=== PATIENT | male | born 1945 | race Caucasian/White ===

== ENCOUNTER 2019-06-03 12:42 | Observation (INO) | payer MEDICARE, BC ==
[~2019-06-03] VITALS: Ht 170.2 cm; Wt 81.0 kg
--- NOTE | 2019-06-03 12:42 | NUR ---
PT AMB TO ROOM IN NO DISTRESS DENIES ABD PAIN
--- NOTE | 2019-06-03 13:01 | NUR ---
PT STATES HAD A WATCHMEN PLACED AND 3 STENTS AT [facility] 2 WEEKS AGO FOR LOW HEART RATE. PT DENIES ANY CHEST PAIN OR SOB
[2019-06-03 13:20] LABS: IMMATURE GRANULOCYTES 0.4 % (0.0-5.0); MEAN CELL VOLUME 90.5 fL CALC (80.0-100.0); MEAN CORPUSCULAR HGB 30.9 pG CALC (26.0-32.0); MEAN CORPUSCULAR HGB CONC 34.1 g/dL CAL (32.0-36.0); NEUT# 7.12 thou/uL (1.82-7.42); RED BLOOD COUNT 4.53 mill/uL (4.70-6.10); RED CELL DISTRI WIDTH 13.1 % (11.5-15.5)
[2019-06-03 13:36] LABS: ALBUMIN 4.2 g/dL (3.2-5.0); BILIRUBIN, TOTAL 1.4 mg/dL (0.0-1.4); CREATININE 2.1 mg/dL (0.7-1.3); POTASSIUM 4.9 mmol/l (3.5-5.1); TOTAL PROTEIN 6.8 g/dL (6.3-8.2)
--- NOTE | 2019-06-03 13:45 | NUR ---
NO DIARRHEA SINCE ARRIVAL EXCEPT ABOUT A QUARTER SIZE THAT WAS SENT FOR LAB TESTING.
[2019-06-03] MEDS ORDERED: LIPITOR20 MG PO (14:20)
[2019-06-03] MEDS ORDERED: MAGNESIUM OXID400 M3 PO (14:21)
[2019-06-03] MEDS ORDERED: PLAVIX75 MG PO (14:21)
[2019-06-03] MEDS ORDERED: SOTALOL HCL80 MG PO (14:22)
[2019-06-03] MEDS ORDERED: ELIQUIS2.5 MG PO (14:23)
--- NOTE | 2019-06-03 14:29 | NUR ---
STOOL OBTAINED AND SENT,, PT RESTING QUIETLY ON STRETCHER, AT BEDSIDE. NO COMPLAINTS AT THIS TIME
[2019-06-03 15:00] LABS: URINE BILIRUBIN - DIPSTICK NEGATIVE (NEGATIVE); URINE BLOOD DIPSTICK TRACE-INTACT (NEGATIVE); URINE COLOR YELLOW; URINE GLUCOSE - DIPSTICK NEGATIVE (NEGATIVE); URINE KETONE NEGATIVE (NEGATIVE); URINE LEUK ESTERASE TRACE (NEGATIVE); URINE NITRITE - DIPSTICK NEGATIVE (Negative); URINE PROTEIN - DIPSTICK NEGATIVE (NEG-TRACE); URINE SPECIFIC GRAVITY 1.015; URINE UROBILINOGEN - DIPSTICK 0.2 E.U./dL (0.2)
--- NOTE | 2019-06-03 15:03 | NUR ---
PT RESTING QUIETLY ON STRETCHER, DENIES ANY PAIN AT THIS TIME, DENIES THE NEED TO HAVE BOWEL MOVEMNT
[2019-06-03] MEDS ORDERED: ALLOPURINOL300 MG PO (15:53)
[2019-06-03] MEDS ORDERED: CITALOPRAM10 MG PO ×2 (15:54→15:55)
[2019-06-03] MEDS ORDERED: TRAZODONE50 MG PO (15:56)
[2019-06-03] MEDS ORDERED: LISINOPRIL10 MG PO (15:56)
--- NOTE | 2019-06-03 16:39 | NUR ---
REPORT CALLED TO [facility], AND PT TAKEN TO FLOOR PER W/C WITH TELEMETRY
[2019-06-03 17:00] VITALS: BP 155/58
--- NOTE | 2019-06-03 17:15 | NUR ---
PATIENT ARRIVED ON FLOOR AT APPROXIMATELY 1645. PT IS ALERT AND ORIENTED X 4; ABLE TO MAKE NEEDS KNOWN. GAIT STEADY AND PT IS ABLE TO AMBULATE INDEPENDENTLY. PT HAD TWO EPISODE OF DIARRHEA WITHIN 30 MINUTES. STOOL IS LOOSE, MODERATE IN QUANTITY AND YELLOW IN COLOR. BOWEL SOUND ARE HYPERACTIVE, STOMACH IS ROUND, DISTENDED, AND SOFT TO PALPATION. PT C/O STOMACH TENDERNESS DURING GENTLE PALPATION. PT C/O REDUCED APPETITE AND URGENCY WHEN HE HAS TO HAVE A BOWEL MOVEMENT. BEDSIDE COMMODE AND TOILETRIES SET WITHIN EASY REACH. PT DENIES NAUSEA. PT DENIES VOMITING. PT ORIENTED TO CALL BUTTON, BED CONTROL, PHONE. CERTIFIED BENCH JEWELER TECHNICIAN WILL CONTIUE TO MONITOR
--- NOTE | 2019-06-03 19:00 | NUR ---
RECEIVED REPORT FROM NURSE WISDOM PATIENT RESTING IN BED, WATCHING TV, CALL LIGHT AT REACH.
[2019-06-03 20:20] VITALS: BP 139/62
--- NOTE | 2019-06-03 20:30 | NUR ---
PATIENT ALERT ORINETED, ABLE TO MAKE NEEDS KNOWN, WITH AN ONGOING IV OF LR @ 100CC/HR INFUSING WELL REMAINS ON TELE, STILL HAVING LOOSE WATERY STOOL BM X 2 THIS SHIFT, BEDSIDE COMMODE AVAILABLE, BOWEL SOUNDS HYPERACTIVE ON ALL QUADRANT. CALL LIGHT AT REACH.
--- NOTE | 2019-06-03 21:37 | NUR ---
NOTIFIED DR. RED ABOUT CLARIFICATION REGARDING MAGNESIUM OXIDE WITH ORDERS MADE.
[2019-06-03 23:30] VITALS: BP 146/66
--- NOTE | 2019-06-04 01:08 | NUR ---
PATIENT APPEARS TO BED SLEEPING WITH EYES CLOSED WITH EVEN UNLABORED BREATHING CALL LIGHT AT REACH.
[2019-06-04 03:46] VITALS: BP 108/59
--- NOTE | 2019-06-04 04:15 | NUR ---
PATIENT APPEARS TO BE SLEEPING WITH EYES CLOSED, NO DISCOMFORTS NOTED AT THIS TIME, CALL LIGHT AT REACH.
--- NOTE | 2019-06-04 07:00 | NUR ---
SHIFT CHANGE REPORT, PT AWAKE ALERT AND ORIENTED RESTING IN BED, IVF INFUSING, TELE MONITOR IN PLACE, NO C/O DISCOMFORT, CALL GUERRERO IN REACH.
[2019-06-04 07:27] LABS: CREATININE 1.7 mg/dL (0.7-1.3); POTASSIUM 5.1 mmol/l (3.5-5.1)
[2019-06-04 08:03] VITALS: BP 174/65
[2019-06-04 08:10] VITALS: BP 149/64
[2019-06-04 11:27] VITALS: BP 133/69
--- NOTE | 2019-06-04 12:00 | NUR ---
SITTING UP AT BEDSIDE PREPARING TO HAVE MEAL, ALL NEEDS ADDRESSED, CALL GUERRERO IN REACH.
[2019-06-04 15:00] VITALS: BP 151/66
--- NOTE | 2019-06-04 16:05 | NUR ---
RESTING IN BED, C/O ABDOMINAL BLOATING, WANTS TO FIND OUT IF WE HAVE OBTAINED RECORDS FROM [facility], ADVISED ORDERING MD WOULD BE THE ONE WITH RESULTS AND OUR MD WILL REQUEST RECORDS FROM THAT MD IF NEEDED, WILL CONTINUE TO MONITOR.
--- NOTE | 2019-06-04 16:41 | NUR ---
PT CONCERNED ABOUT HAVING DIARRHEA FOR ALMOST 2 WEEKS NOW, STATED NO ONE IS TELLLING HIM WHATS HAPPENING AND WANTS TO KNOW TEST RESULTS, ADVISED MD HERE IS MONITORING CONDITION AND CONTINUING WITH CURRENT TREATMENT AND WILL REASSESS TOMORROW.
[2019-06-04 20:04] VITALS: BP 134/61
--- NOTE | 2019-06-04 21:03 | NUR ---
PT RESTING IN BED ALERT AND ORIENTED. PT DENIES ANY PAIN OR DISCOMFORT AT THIS TIME. RESPIRATIONS ARE EVEN AND UNLABORED ON RA. LUNGS SOUND CLEAR/DIMINISHED. PEDAL PULSES STRONG. SAFETY PRECAUTIONS IN PLACE. WILL CONTINUE TO MONITOR.
--- NOTE | 2019-06-05 00:02 | NUR ---
PT RESTING IN BED, NO S/S OF DISTRESS AT THIS TIME. SAFETY PRECAUTIONS IN PLACE. WILL CONTINUE TO MONITOR
[2019-06-05 00:13] VITALS: BP 110/50
[2019-06-05 04:08] VITALS: BP 168/83
--- NOTE | 2019-06-05 04:31 | NUR ---
PT RESTING IN BED, RESPIRATIONS EVEN AND UNLABORED ON RA. SAFETY PRECAUTIONS IN PLACE. WILL CONTINUE TO MONITOR.
[2019-06-05 05:26] LABS: HEMATOCRIT 39.8 % (39.0-50.0); HEMOGLOBIN 13.6 g/dl (14.0-18.0); MEAN CELL VOLUME 91.3 fL CALC (80.0-100.0); MEAN CORPUSCULAR HGB 31.2 pG CALC (26.0-32.0); MEAN CORPUSCULAR HGB CONC 34.2 g/dL CAL (32.0-36.0); RED BLOOD COUNT 4.36 mill/uL (4.70-6.10); RED CELL DISTRI WIDTH 12.9 % (11.5-15.5)
[2019-06-05 05:48] LABS: ALKALINE PHOSPHATASE 63 u/l (38-126); ANION GAP 11 (6-22 (CALC)); BILIRUBIN, TOTAL 1.4 mg/dL (0.0-1.4); BUN 28 mg/dL (8-23); BUN/CREATININE RATIO 22 (12-20 (CALC)); CARBON DIOXIDE 19 mmol/l (22-30); CHLORIDE 108 mmol/l (95-108); CREATININE 1.3 mg/dL (0.7-1.3); GFR 54 ML/MIN (>=60 (CALC)); GFR FOR AFR.AMER. > 60 ML/MIN (>=60 (CALC)); SGOT/AST 29 u/l (19-48); SODIUM 132 mmol/l (137-146); TOTAL PROTEIN 5.7 g/dL (6.3-8.2)
[2019-06-05 05:53] LABS: ALBUMIN 3.3 g/dL (3.2-5.0)
[2019-06-05 06:16] VITALS: BP 134/58
--- NOTE | 2019-06-05 07:10 | NUR ---
REPORT RECEIVED FROM VISHALRN;PT RESTING IN SEMI FOWLERS POSITION;INTRODUCED SELF TO PT AND POC DISCUSSED;RESPIRATIONS EVEN AND UNLABORED ON RA;TELE MONITORING IN PLACE;IV FLUIDS INFUSING WITH EASE PER ORDER;PT DENIES ANY CURRENT NEEDS AND IS ENCOURAGED TO CALL FOR ASSISTANCE IF NEEDED;FALL PRECAUTIONS IN PLACE WITH BED IN THE LOWEST POSITION AND CALL LIGHT IN REACH;WILL CONTINUE TO MONITOR
[2019-06-05 08:00] VITALS: BP 137/60
--- NOTE | 2019-06-05 08:00 | NUR ---
PT RESTING IN HIGH FOWLERS POSTION WATCHING TV. VITALS OBTAINED. BP 137/60.HR 51. HEART SOUNDS NORMAL. BREATH SOUNDS CLEAR AND UNLABORED. BOWEL SOUNDS ACTIVE AND NO PAIN WHEN PALPATED. RADIAL AND PEDAL PULSES STRONG. ERIC HOSE APPLIED. TELE MONITOR IN PLACE. IV PATENT, SITE APPEARS HEALTHY. PT DENIES OF AN PAIN OR DISCOMFORTS AT THIS TIME. WILL CONTINUE TO MONITOR.
--- NOTE | 2019-06-05 10:42 | NUR ---
AT BEDSIDE DISCUSSING POC WITH PT.
[2019-06-05 11:09] VITALS: BP 146/68
--- NOTE | 2019-06-05 12:11 | NUR ---
PT IN HIGH FOWLERS POSTIONING WATCHING TV. BREATHING IS EVEN AND UNLABORED. PT DENIES ANY PAIN OR DISCOMFORTS. WILL CONTINUE TO MONITOR.
--- NOTE | 2019-06-05 12:17 | NUR ---
PT DIET CHANGED FROM CLEAR LUQUID TO SOFT PER DR HAMM APPROVAL.
--- NOTE | 2019-06-05 13:18 | NUR ---
PT IV REMOVED, CATHATER STILL INTACT. PT TOLERATED WELL. EDUCATED PT ON DISCHARGE INSTRUCTIONS. PT WAITING FOR FOR TRANSPORTATION. WILL CONTINUE TO MONITOR.
--- NOTE | 2019-06-05 13:44 | NUR ---
Discharge instructions given. Patient verbalizes understanding of same. Discharged in stable condition via Wheelchair to Home with family. All belongings sent with pt. PT TRANSPORTED TO [facility] IN STABLE CONDITION VIA WHEELCHAIR ACCOMPANIED BY SHARI ARANGO.SPOUSE TO TRANSPORT PT HOME.
== END 2019-06-05 13:45 | disposition home or self-care (01) ==
LOC: ED 12:42 → ED-I 15:27 → ED 15:50 → ED-I 15:51 → MS2 15:51
PROVIDERS: Internal Medicine; Nurse Practitioner Family; ADMIT Internal Medicine; ATTEND Internal Medicine
PROC: 3E0234Z Introduction of Serum, Toxoid and Vaccine into Muscle, Percutaneous Approach (ICD-10-PCS; principal; 2019-06-04)
DX: K52.9 Noninfective gastroenteritis and colitis, unspecified (principal); N17.9 Acute kidney failure, unspecified; E86.0 Dehydration; I10 Essential (primary) hypertension; I25.10 Atherosclerotic heart disease of native coronary artery without angina pectoris; I48.91 Unspecified atrial fibrillation; Z95.5 Presence of coronary angioplasty implant and graft; Z23 Encounter for immunization
CPT/HCPCS: G0378